=== PATIENT | female | born 2000 | race Caucasian/White ===

== ENCOUNTER 2019-05-24 00:53 | Inpatient (IN) | payer OTHER ==
[2019-05-24] MEDS ORDERED: TERBUTALINE 1 MG/ML VIAL SQ PRN (01:19)
[2019-05-24] MEDS ORDERED: METHYLERGONOVINE 0.2 MG/ML 1 ML AMP IM PRN (01:19)
[2019-05-24] MEDS ORDERED: OXYTOCIN 10 UNIT/ML 1 ML VIAL IM PRN (01:19)
[2019-05-24] MEDS ORDERED: CARBOPROST TROMETHAMINE 250 MCG/ML 1 ML AMP IM PRN (01:19)
[2019-05-24] MEDS ORDERED: LIDOCAINE 0.5% (PF) 5 MG/ML (50 ML SDV) SQ PRN (01:19)
[2019-05-24] MEDS ORDERED: BUTORPHANOL 1 MG/ML 1 ML VIAL IV PRN (01:20)
[2019-05-24] MEDS ORDERED: OXYTOCIN 30 UNITS/500 ML NS 30 UNIT in SALINE 1 500ML.BAG IV SCH (01:30)
[2019-05-24] MEDS ORDERED: LACTATED RINGERS 1,000 ML IV SCH ×2 (01:30)
[2019-05-24 02:56] LABS: Basophils % (A) 0 %; Eosinophils # (A) 0.1 k/uL (0-0.7); Eosinophils % (A) 1 %; HCT 40.8 % (34.0-46.0); HGB 13.4 gm/dL (11.4-16.0); Lymphocytes # (A) 1.8 k/uL (1.0-4.8); Lymphocytes % (A) 21 %; MCH 29.3 pg (25.0-35.0); MCHC 32.8 g/dL (31.0-37.0); MCV 89.2 fL (80.0-100.0); Mean Platelet Volume 7.8; Monocytes # (A) 0.6 k/uL (0-1.0); Monocytes % (A) 7 %; Neutrophils % (A) 69 %; Platelet Count 214 k/uL (150-450); RBC 4.57 m/uL (3.80-5.40); RDW 13.8 % (11.5-15.5); WBC 8.7 k/uL (4.0-11.0)
--- NOTE | 2019-05-24 04:07 | P.HPOB ---
History of Present Illness H&P Date: 05/24/19 Chief Complaint: Rupture of membranes at 39 and one sevenths weeks This is a 18-year-old 1 para 0 woman who presented at 39 and one sevenths weeks gestation with spontaneous rupture of membranes not in active labor. She had rupture of membranes at approximately 12:15 AM of clear fluid. On admission she was noted to be 5 cm dilated and irregularly renetta. She had an uncomplicated . Laboratory data: Blood type B positive, antibody screen negative, rubella nonimmune, VDRL nonreactive, hep Samantha surface antigen negative, HIV negative, gonorrhea and clinically cultures negative, diabetes screening within normal limits, group B strep negative Review of Systems All systems: negative Past Medical History Past Medical History: No Reported History History of Any Multi-Drug Resistant Organisms: None Reported Past Surgical History: No Surgical Hx Reported Additional Past Surgical History / Comment(s): Cyst removed Past Anesthesia/Blood Transfusion Reactions: No Reported Reaction Past Psychological History: No Psychological Hx Reported Smoking Status: Never smoker Past Alcohol Use History: None Reported Past Drug Use History: None Reported - Past Family History Mother Family Medical History: No Reported History Medications and Allergies Home Medications Medication Instructions Recorded Confirmed Type Pnv,Calcium 72/Iron/Folic Acid 1 tab PO DAILY 05/24/19 05/24/19 History [ Plus Tablet] Allergies Allergy/AdvReac Type Severity Reaction Status Date / Time No Known Allergies Allergy Verified 05/24/19 00:56 Exam Vital Signs Temp Pulse Resp BP Pulse Ox 05/24/19 01:18 96.7 F L 95 16 136/86 100 Intake and Output 05/23/19 05/23/19 05/24/19 14:59 22:59 06:59 Other: Weight 68.039 kg Upon my initial evaluation the patient is reach complete cervical dilation and is uncomfortable with contractions. heart tones are category 2. She is renetta every 1-2 minutes. Results Result Diagrams: 05/24/19 02:24 Assessment and Plan (1) 39 weeks gestation of Current Visit: Yes Status: Acute Code(s): Z3A.39 - 39 WEEKS GESTATION OF SNOMED Code(s): 73786496 (2) Spontaneous onset of labor Current Visit: Yes Status: Acute Code(s): HQY7726 - SNOMED Code(s): 70523948 (3) Spontaneous rupture of membranes Current Visit: Yes Status: Acute Code(s): BRG6528 - SNOMED Code(s): 465149179 (4) Rubella non-immune status, antepartum Current Visit: Yes Status: Acute Code(s): O99.89 - OTH DISEASES AND CONDITIONS COMPL PREG/CHLDBRTH; Z28.3 - UNDERIMMUNIZATION STATUS SNOMED Code(s): 016071557 Plan: 18-year-old 1 para 0 woman presents at 39 and one sevenths weeks gestation in spontaneous active labor with rupture of membranes. She is group B strep negative and Rh+. Anticipate a normal spontaneous vaginal delivery.
[2019-05-24] MEDS ORDERED: diphenhydrAMINE 50 MG CAP PO PRN (04:11)
[2019-05-24] MEDS ORDERED: LANOLIN CREAM 5 GM TUBE TOPICAL PRN (04:11)
[2019-05-24] MEDS ORDERED: MEASLES-MUMPS-RUBELLA VACC/PF 12,500 UNIT/0.5 ML VIAL SQ ONE (04:11)
[2019-05-24] MEDS ORDERED: HYDROCORTISONE 2.5% RECTAL CREAM 30 GM TUBE RECTAL PRN (04:11)
[2019-05-24] MEDS ORDERED: ZOLPIDEM 5 MG TAB PO PRN (04:11)
[2019-05-24] MEDS ORDERED: ACETAMINOPHEN TAB 325 MG TAB PO PRN (04:11)
[2019-05-24] MEDS ORDERED: diphenhydrAMINE 25 MG CAP PO PRN (04:11)
[2019-05-24] MEDS ORDERED: diphenhydrAMINE 50 MG/ML 1 ML VIAL IVP PRN ×2 (04:11)
[2019-05-24] MEDS ORDERED: WITCH HAZEL 1 EACH MED..PAD TOPICAL PRN (04:11)
[2019-05-24] MEDS ORDERED: SIMETHICONE 80 MG CHEWABLE PO PRN (04:11)
[2019-05-24] MEDS ORDERED: BENZOCAINE/MENTHOL SPRAY 1 GM/SPRAY AEROSOL TOPICAL PRN (04:11)
--- NOTE | 2019-05-24 04:11 | P.PROBDLV ---
Vaginal Delivery Note - . Vaginal Delivery Note: Findings: Female in the left occiput anterior position with Apgars of 9 at 1 minute and 9 at 5 minutes weighing 8 lbs. 5 oz., 3785 g. Third-degree midline episiotomy. Intact, calcified, three-vessel cord placenta. EBL 150 mL's. Delivery summary: This is a 18-year-old 1 para 0 woman with an estimated due date of 05/31/2019 who presented at 39 and one sevenths weeks gestation with spontaneous rupture of membranes at 12:15 AM. She was admitted and began regularly and spontaneously renetta. She had rapid progression to complete cervical dilation by 3:20 AM. She had category 2 heart tones throughout the first stage of labor and commenced pushing. She did have deep variable heart rate decelerations down to 85 bpm with some rebound greater than 100. She had excellent maternal effort. With she was repositioned, prepped and draped in the dorsal modified Donya position. Perineum was infused with lidocaine and a midline episiotomy was cut secondary to heart rate decelerations. With additional maternal effort 1 the head delivered over midline episiotomy extended into third-degree laceration. Once the head was delivered the anterior followed by the posterior shoulders were delivered without difficulty. The rest the infant was delivered onto the field. The nose and mouth were bulb suctioned. was placed on the maternal abdomen and the cord was clamped and cut. Apgars were 9 at 1 minute and 9 at 5 minutes. Weight was 8 pounds 5.5 ounces. 3-0 Vicryl suture was utilized to repair a partial third-degree laceration in the usual fashion with care taken to reapproximate the portion of muscular capsule that was disrupted. An intact, three-vessel cord placenta was then expressed after a approximately 10 minute third stage of labor. The uterus was massaged and was noted to be firm. The vagina and cervix were further inspected and no additional lacerations were noted. On the patient's IV was not working well therefore she was given Pitocin intramuscularly 15 units. All counts were correct and both mother and were doing well post delivery in the room.
[2019-05-24] MEDS ORDERED: OXYTOCIN 20 UNITS/1000 ML NS 1,000 ML IV SCH (04:15)
[2019-05-24] MEDS: IBUPROFEN 600 MG TAB PO PRN ×2 (05:41→20:08)
[2019-05-24 09:23] VITALS: RESP 16
[2019-05-24] MEDS: SENNOSIDES-DOCUSATE SODIUM 1 EACH TAB PO SCH ×2 (09:24→20:09)
[2019-05-25 06:32] LABS: Basophils % (A) 0 %; Eosinophils # (A) 0.1 k/uL (0-0.7); Eosinophils % (A) 1 %; HCT 40.6 % (34.0-46.0); HGB 13.1 gm/dL (11.4-16.0); Lymphocytes # (A) 2.1 k/uL (1.0-4.8); Lymphocytes % (A) 18 %; MCH 29.2 pg (25.0-35.0); MCHC 32.3 g/dL (31.0-37.0); MCV 90.4 fL (80.0-100.0); Mean Platelet Volume 7.6; Monocytes # (A) 0.5 k/uL (0-1.0); Monocytes % (A) 4 %; Neutrophils # (A) 9.1 k/uL (1.3-7.7); Neutrophils % (A) 76 %; Platelet Count 252 k/uL (150-450); RBC 4.49 m/uL (3.80-5.40); RDW 13.9 % (11.5-15.5)
[2019-05-25] MEDS: IBUPROFEN 600 MG TAB PO PRN (08:03)
[2019-05-25 08:10] VITALS: BP 101/56; PULSE 86; TEMP 98.6
[2019-05-25] MEDS: SENNOSIDES-DOCUSATE SODIUM 1 EACH TAB PO SCH (08:10)
--- NOTE | 2019-05-25 10:01 | P.DS ---
Providers Date of admission: 05/24/19 01:14 Expected date of discharge: 05/25/19 Attending physician: Subhash Wing Primary care physician: Stated None - Discharge Diagnosis(es) (1) 39 weeks gestation of Current Visit: Yes Status: Acute (2) Spontaneous onset of labor Current Visit: Yes Status: Acute (3) Spontaneous rupture of membranes Current Visit: Yes Status: Acute (4) Rubella non-immune status, antepartum Current Visit: Yes Status: Acute (5) Normal spontaneous vaginal delivery Current Visit: Yes Status: Acute (6) Perineal laceration with delivery, third degree Current Visit: Yes Status: Acute Hospital Course: This is a 18-year-old 1 para 1 woman who presented at 39 weeks gestation with spontaneous rupture of membranes and active labor. She had rapid progression to complete cervical dilation and went on to deliver a liveborn female over a third-degree midline episiotomy done for deep variable heart rate decelerations. Please see the delivery summary for details. Apgars of the female infant were 9 at 1 minute and 9 at 5 minutes and weight was 8 lbs. 5 oz. The patient's course was unremarkable. By day #1 she was doing very well with stable vital signs. Her lochia was minimal. Her perineum was well healing and she was ambulating and voiding without difficulty. She was therefore discharged home with routine instructions for care and follow-up. Patient Condition at Discharge: Good Plan - Discharge Summary New Discharge Prescriptions: No Action Pnv,Calcium 72/Iron/Folic Acid [ Plus Tablet] 1 tab PO DAILY Discharge Medication List Pnv,Calcium 72/Iron/Folic Acid [ Plus Tablet] 1 tab PO DAILY 05/24/19 [History] Follow up Appointment(s)/Referral(s): Subhash Wing MD [STAFF PHYSICIAN] - 6 Weeks Activity/Diet/Wound Care/Special Instructions: Follow-up in the office in 6 weeks . Call with any concerning signs or symptoms including heavy vaginal bleeding, severe abdominal pain, fever greater than 101, swelling or redness of the lower extremities, foul vaginal discharge, or signs of depression. Nothing in the vagina for 6 weeks after delivery, specifically no intercourse. May use [id number] ibuprofen and/or Tylenol as needed for pain. Discharge Disposition: HOME SELF-CARE
== END 2019-05-25 11:00 | disposition home or self-care (01) | DRG 768 ==
LOC: FBPOP 00:53 → 4FBP 01:14
PROVIDERS: ADMIT Obstetrics & Gynecology; ATTEND Obstetrics & Gynecology
PROC: 0DQR0ZZ Repair Anal Sphincter, Open Approach (ICD-10-PCS; principal; 2019-05-24)
PROC: 10E0XZZ Delivery of Products of Conception, External Approach (ICD-10-PCS; principal; 2019-05-24)
PROC: 0W8NXZZ Division of Female Perineum, External Approach (ICD-10-PCS; principal; 2019-05-24)
DX: O76 Abnormality in fetal heart rate and rhythm complicating labor and delivery (principal); Z37.0 Single live birth; O70.20 Third degree perineal laceration during delivery, unspecified; Z3A.39 39 weeks gestation of pregnancy
CPT/HCPCS: 59025; 84112; 85025; 86850; 86900; 86901; 90707; 99213

== ENCOUNTER 2023-09-06 09:48 | Outpatient (CLI) | payer OTHER ==
[2023-09-06] MEDS: LACTATED RINGERS 1,000 ML IV ONE (10:50)
[2023-09-06 12:55] VITALS: BP 115/71; PULSE 93; RESP 17; TEMP 97.3
--- NOTE | 2023-09-21 10:58 | P.MSEPDOC ---
Presenting Problems - Arrival Data Date of Arrival on Unit: 09/06/23 Time of Arrival on Unit: 09:48 Mode of Transport: Ambulatory - Complaint OB-Reason for Admission/Chief Complaint: Decreased Movement Comment: pt presents to triage for decreased movement, she has not felt movement since yesterday Medical History - Information : 3 Para: 1 Term: 1 : 0 Abortions: Spontaneous or Elective: 1 Number of Living Children: 1 - Gestational Age Gestational Age by JANEE (wks/days): 29 Weeks and 2 Days Review of Systems - Review of Systems Constitutional: No problems Breast: No problems ENT: No problems Cardiovascular: No problems Respiratory: No problems Gastrointestinal: No problems Genitourinary: No problems Musculoskeletal: No problems Neurological: No problems Skin: No problems Vital Signs - Temperature Temperature: 97.3 F Temperature Source: Temporal Artery Scan - Pulse Right Brachial Pulse Rate: 93 Pulse Assessment Method: Automatic Cuff - Respirations Respiratory Rate: 17 Oxygen Delivery Method: Room Air - Blood Pressure Right Arm Blood Pressure: 115/71 Blood Pressure Mean: 85 Blood Pressure Source: Automatic Cuff Medical Screen Scoring - Uterine Contractions Resting: Soft to palpation - Assessment - Baby A Baseline FHR: 130 Heart Rate - NICHD Category: Category I (Normal) NST: Reactive Physician Notification - Physician Notified Physician Notified Date: 09/06/23 Physician Notified Time: 10:35 New Order Received: Yes - Notification Comment Comment: Dr. Wing asked to view heart tones, pt given 1 liter of LR, reactive nst after fluids given, pt discharged home with instructions to follow up in office at scheduled 4/3 appt unless she has other concerns then she can call for appt next week Maternal Triage Index - Maternal Triage Index Presenting for scheduled procedure w/no complaint: No - Stat/Priority 1 Stat Priority 1: No - Urgent/Priority 2 Urgent Priority 2: Yes Provider Notified: Subhash Wing Provider Notified Time: 10:35 Criteria Met for Priority 2: pt presents to triage for decreased movement, she has not felt movement since yesterday Disposition - Disposition OB Disposition: Triage, Discharge to home, Written follow up instructions reviewed Discharge Date: 09/06/23 Discharge Time: 12:15 I agree with the RN Medical Screening Exam: Yes Physician's MSE Comment: I have neither seen nor examined the patient. Case reviewed; plan agreed upon as documented in EMR&OBIX.: Yes Diagnosis: RELATED CONDITIONS, UNSPECIFIED, THIRD TRIMESTER
== END 2023-09-06 12:15 | disposition home or self-care (01) ==
LOC: FBPOP 09:48
PROVIDERS: ATTEND Obstetrics & Gynecology
DX: O36.8131 Decreased fetal movements, third trimester, fetus 1 (principal); Z3A.29 29 weeks gestation of pregnancy
CPT/HCPCS: 59025; 96360; G0463; 99214

== ENCOUNTER 2023-11-06 08:49 | Inpatient (IN) | payer OTHER ==
[2023-11-06] MEDS ORDERED: CARBOPROST TROMETHAMINE 250 MCG/ML 1 ML AMP IM PRN (09:07)
[2023-11-06] MEDS ORDERED: miSOPROStoL 200 MCG TAB PO PRN (09:07)
[2023-11-06] MEDS ORDERED: TRANEXAMIC 1,000 MG/100ML-NACL 1,000 MG in EMPTY BAG 1 BAG IV PRN (09:07)
[2023-11-06] MEDS ORDERED: TERBUTALINE 1 MG/ML VIAL SQ PRN (09:07)
[2023-11-06] MEDS ORDERED: METHYLERGONOVINE 0.2 MG/ML 1 ML AMP IM PRN (09:07)
[2023-11-06] MEDS ORDERED: OXYTOCIN 10 UNIT/ML 1 ML VIAL IM PRN (09:07)
[2023-11-06] MEDS: LACTATED RINGERS 1,000 ML IV SCH (09:37)
[2023-11-06 09:57] LABS: Basophils % (A) 0 %; Eosinophils # (A) 0.1 k/uL (0-0.7); Eosinophils % (A) 1 %; HCT 44.3 % (34.0-46.0); HGB 14.6 gm/dL (11.4-16.0); Lymphocytes # (A) 1.6 k/uL (1.0-4.8); Lymphocytes % (A) 15 %; MCH 30.4 pg (25.0-35.0); MCHC 32.9 g/dL (31.0-37.0); MCV 92.7 fL (80.0-100.0); Mean Platelet Volume 9.1; Monocytes # (A) 0.4 k/uL (0-1.0); Monocytes % (A) 4 %; Neutrophils # (A) 8.1 k/uL (1.3-7.7); Neutrophils % (A) 78 %; Platelet Count 197 k/uL (150-450); RBC 4.78 m/uL (3.80-5.40); RDW 13.3 % (11.5-15.5); WBC 10.3 k/uL (3.8-10.6)
[2023-11-06] MEDS ORDERED: LANOLIN CREAM 1 GM TUBE TOPICAL PRN (11:01)
[2023-11-06] MEDS ORDERED: diphenhydrAMINE 25 MG CAP PO PRN (11:01)
[2023-11-06] MEDS ORDERED: SIMETHICONE 80 MG CHEWABLE PO PRN (11:01)
[2023-11-06] MEDS ORDERED: ZOLPIDEM 5 MG TAB PO PRN (11:01)
[2023-11-06] MEDS ORDERED: diphenhydrAMINE 50 MG/ML 1 ML VIAL IVP PRN ×2 (11:01)
[2023-11-06] MEDS ORDERED: HYDROCORTISONE 2.5% RECTAL CREAM 30 GM TUBE RECTAL PRN (11:01)
[2023-11-06] MEDS ORDERED: ACETAMINOPHEN TAB 325 MG TAB PO PRN (11:01)
[2023-11-06] MEDS ORDERED: BENZOCAINE/MENTHOL SPRAY 1 GM/SPRAY AEROSOL TOPICAL PRN (11:01)
[2023-11-06] MEDS ORDERED: diphenhydrAMINE 50 MG CAP PO PRN (11:01)
--- NOTE | 2023-11-06 11:06 | P.HPOB ---
History of Present Illness H&P Date: 11/06/23 Chief Complaint: IUP at 38-0/7 weeks, active labor This is a 22-year-old -0-1-1 at 38-0/7 weeks that presents to labor and delivery with complaints of regular painful contractions. Patient has been receiving routine care which has been essentially uncomplicated. Patient notes good movement denies loss of fluid. On blood work this patient is a blood type of a positive, rubella status nonimmune, hepatitis B surface engine negative, HIV negative, RPR is nonreactive, group B strep culture is negative. Review of Systems Constitutional: Denies chills, Denies fatigue, Denies fever Ears, nose, mouth and throat: Denies headache Cardiovascular: Denies leg edema Respiratory: Denies dyspnea Gastrointestinal: Denies nausea, Denies vomiting Genitourinary: Reports Past Medical History Past Medical History: No Reported History History of Any Multi-Drug Resistant Organisms: None Reported Past Surgical History: No Surgical Hx Reported Additional Past Surgical History / Comment(s): Cyst removed Past Anesthesia/Blood Transfusion Reactions: No Reported Reaction Smoking Status: Former smoker - Past Family History Mother Family Medical History: No Reported History Medications and Allergies Home Medications Medication Instructions Recorded Confirmed Type Vit No.180/Iron/Folic 1 tab PO DAILY 05/24/19 11/06/23 History [ Plus Tablet] Allergies Allergy/AdvReac Type Severity Reaction Status Date / Time No Known Allergies Allergy Verified 11/06/23 09:04 Exam Osteopathic Statement: *. No significant issues noted on an osteopathic structural exam other than those noted in the History and Physical/Consult. Vital Signs Temp Pulse Resp BP Pulse Ox 11/06/23 09:03 97.6 F 96 16 117/77 99 Intake and Output 11/05/23 11/06/23 11/06/23 22:59 06:59 14:59 Other: Weight 72.575 kg Targeted physical exam is performed on this date in general is a well-nourished well-developed female in active labor, breathing appears nonlabored, abdomen is gravid, on cervical exam she is completely dilated with a bulging bag of water. heart tones are noted to be category 1 and she is renetta every 3 to 4 minutes. Amniotomy is performed and clear fluid was obtained. Results Result Diagrams: 11/06/23 09:30 Abnormal Lab Results - Last 24 Hours (Table) 11/06/23 Range/Units 09:30 Neutrophils # 8.1 H (1.3-7.7) k/uL Assessment and Plan (1) Term Current Visit: Yes Status: Acute Code(s): Z34.90 - ENCNTR FOR SUPRVSN OF NORMAL , UNSP, UNSP TRIMESTER SNOMED Code(s): 22744005 (2) Spontaneous onset of labor Current Visit: No Status: Acute Code(s): MXT9053 - SNOMED Code(s): 69936929 Plan: 22-year-old -0-1-1 at 38-0/7 weeks presents in active labor. Anticipate spontaneous vaginal delivery
--- NOTE | 2023-11-06 11:07 | P.PROBDLV ---
Vaginal Delivery Note - . Vaginal Delivery Note: 22-year-old 3 para 1-0-1-1 at 38-0/7 weeks that presented this morning and active labor. Patient underwent amniotomy and was noted to be completely dilated. Patient began pushing and had a normal spontaneous vaginal delivery of a viable female infant at 1046, weight of 6 pounds 7.5 ounces, Apgars of 9 and 9 at 1 and 5 minutes respectively. After 2-minute delay the umbilical cord was doubly clamped and cut. The placenta was delivered spontaneously intact with a three-vessel cord being noted. On inspection the patient's vaginal vault second-degree midline laceration was appreciated, the laceration was injected with lidocaine and repaired in usual fashion with 3-0 Rapide. After closure hemostasis was noted. Uterus was noted to be firm below the umbilicus. Estimated blood loss 200 cc. All counts were noted be correct x 2 at the end of the delivery. Patient and tolerated delivery well and are resting comfortably.
[2023-11-06] MEDS: OXYTOCIN 30 UNITS/500 ML NS 30 UNIT in SALINE 1 500ML.BAG IV SCH (11:25)
[2023-11-06] MEDS: LIDOCAINE 0.5% (PF) 5 MG/ML (50 ML SDV) SQ PRN (11:26)
[2023-11-06] MEDS: IBUPROFEN 600 MG TAB PO SCH (13:13)
[2023-11-06] MEDS: SENNOSIDES-DOCUSATE SODIUM 1 EACH TAB PO SCH (19:32)
[2023-11-07] MEDS: PRENATAL VIT-IRON-FOLIC ACID 1 EACH TABLET PO SCH (07:48)
--- NOTE | 2023-11-07 08:44 | P.PNOBGVD ---
Subjective - Subjective Principal diagnosis: day #1 Interval history: Patient is doing well overall, she is ambulating and voiding without difficulty, lochia is minimal, she is pumping as the is in the nursery on oxygen She states pain is well-controlled. Patient reports: Reports appetite normal, Reports voiding normally, Reports pain well controlled, Reports ambulating normally [place]: doing well (In special care nursery on oxygen) Objective - Latest Vital Signs Latest vital signs: Vital Signs Temp Pulse Resp BP Pulse Ox 11/07/23 08:26 98.3 F 86 16 110/74 97 11/07/23 04:00 81 16 113/76 99 11/06/23 19:33 98.3 F 81 16 107/71 96 11/06/23 16:00 99.0 F 102 H 16 107/68 11/06/23 12:55 109 H 18 87/51 11/06/23 12:40 108 H 18 96/54 11/06/23 12:25 110 H 18 95/54 11/06/23 12:10 97 18 100/59 11/06/23 11:55 105 H 16 95/63 11/06/23 11:40 90 16 98/65 11/06/23 11:25 102 H 16 107/71 11/06/23 11:10 104 H 18 109/68 11/06/23 10:55 103 H 16 111/64 11/06/23 09:03 97.6 F 96 16 117/77 99 Intake and Output 11/06/23 11/07/23 11/07/23 22:59 06:59 14:59 Other: Voiding Method Toilet # Voids 2 2 1 - Exam Extremities: Present: normal, edema Abdomen: Present: normal appearance, soft Uterus: Present: normal, firm - Labs Labs: Abnormal Lab Results - Last 24 Hours (Table) 11/06/23 Range/Units 09:30 Neutrophils # 8.1 H (1.3-7.7) k/uL Assessment and Plan (1) Term Current Visit: Yes Status: Acute Code(s): Z34.90 - ENCNTR FOR SUPRVSN OF NORMAL , UNSP, UNSP TRIMESTER SNOMED Code(s): 56367934 (2) Spontaneous onset of labor Current Visit: No Status: Acute Code(s): JEX2747 - SNOMED Code(s): 29268169 (3) Obstetrical laceration, second degree Current Visit: Yes Status: Acute Code(s): O70.1 - SECOND DEGREE PERINEAL LACERATION DURING DELIVERY SNOMED Code(s): 7506905 (4) Normal spontaneous vaginal delivery Current Visit: No Status: Acute Code(s): O80 - ENCOUNTER FOR FULL-TERM UNCOMPLICATED DELIVERY SNOMED Code(s): 29308295 Plan: Patient is doing well . To continue routine care and anticipate discharge home tomorrow
[2023-11-08 10:14] VITALS: RESP 18
--- NOTE | 2023-11-08 13:32 | P.DS ---
Providers Date of admission: 11/06/23 09:09 Expected date of discharge: 11/08/23 Attending physician: Subhash Wing Primary care physician: Stated None - Discharge Diagnosis(es) (1) Term Current Visit: Yes Status: Acute (2) Spontaneous onset of labor Current Visit: No Status: Acute (3) Obstetrical laceration, second degree Current Visit: Yes Status: Acute (4) Normal spontaneous vaginal delivery Current Visit: No Status: Acute Hospital Course: 22-year-old 3 para 2-0-1-2 that presented to labor and delivery at 38- 0/7 weeks in active labor. Patient had been receiving routine care which had been essentially uncomplicated. Patient underwent amniotomy clear fluid was obtained. Patient was noted to be completely dilated at that time. Patient began pushing and had a normal spontaneous vaginal delivery of a viable female at 1046, weight of 6 pounds 7.5 ounces. Patient did sustain a second-degree midline laceration during delivery and was repaired in the usual fashion with 3-0 Rapide. Patient has done well . Infant was admitted to the nursery, please see pediatric note for pediatric assessment. On this day #2 patient has been ambulating and voiding without difficulty she is breast-feeding without difficulty. Her pain is well- controlled. Her lochia is noted to be minimal/moderate. Patient was without concerns and states she is ready for discharge home. Patient Condition at Discharge: Good Plan - Discharge Summary New Discharge Prescriptions: No Action Vit No.180/Iron/Folic [ Plus Tablet] 1 tab PO DAILY Discharge Medication List Vit No.180/Iron/Folic [ Plus Tablet] 1 tab PO DAILY 05/24/19 [History] Follow up Appointment(s)/Referral(s): Subhash Wing MD [STAFF PHYSICIAN] - 12/18/23 1:15 pm Patient Instructions/Handouts: Vaginal Delivery (GEN), Vaginal Delivery (DC) Activity/Diet/Wound Care/Special Instructions: No intercourse, or tub baths. No heavy lifting greater than a gallon of milk. No driving for two weeks. Call with any fever, shakes or chills, with any pain not alleviated by over the counter meds, or with any quesions or concerns. [id number] ibuprofen 600 mg or 3 tablets every 6 hours as needed for pain. Discharge Disposition: HOME SELF-CARE
[2023-11-08 17:44] VITALS: BP 109/71; PULSE 78; TEMP 97.8
== END 2023-11-08 17:20 | disposition home or self-care (01) | DRG 560 ==
LOC: FBPOP 08:49 → 4FBP 09:09
PROVIDERS: ADMIT Obstetrics & Gynecology Obstetrics; ATTEND Obstetrics & Gynecology
PROC: 10E0XZZ Delivery of Products of Conception, External Approach (ICD-10-PCS; principal; 2023-11-06)
PROC: 0KQM0ZZ Repair Perineum Muscle, Open Approach (ICD-10-PCS; 2023-11-06)
PROC: 10907ZC Drainage of Amniotic Fluid, Therapeutic from Products of Conception, Via Natural or Artificial Opening (ICD-10-PCS; 2023-11-06)
DX: O62.3 Precipitate labor (principal); O70.1 Second degree perineal laceration during delivery; Z87.891 Personal history of nicotine dependence; Z3A.38 38 weeks gestation of pregnancy; Z37.0 Single live birth
CPT/HCPCS: 59025; 85025; 86850; 86900; 86901; 99213

== ENCOUNTER 2024-02-07 07:41 | Emergency (ER) | payer OTHER | END 2024-02-07 11:38 | disposition home or self-care (01) | LOC: EC 07:41 | DX: N93.9 Abnormal uterine and vaginal bleeding, unspecified (principal) | CPT/HCPCS: 86850; 86900; 86901; 99283 ==